=== PATIENT | female | born 1970 | race Caucasian/White ===

== ENCOUNTER 2020-07-30 11:45 | Emergency (ER) | payer OTHER, SELFPAY ==
[2020-07-30 11:54] VITALS: BP 152/91; PULSE 89; RESP 18; TEMP 36.2; O2SAT 92; BMI 35.4
--- NOTE | 2020-07-30 12:11 | XR_ITS ---
WS: [id number] Portable AP upright chest, 07/30/2020 Clinical Data: sob Comparison: None. Findings: No nodules, masses or effusions are seen. The heart is normal. The pulmonary vascularity is not increased. No pneumothorax is seen. The right cardiac border is obscured and there may be a patc hy opacity. This could represent atelectasis and/or pneumonia. There is slight obscuring of the left cardiac border and the lingula could be involved with pneumonia or atelectasis. XR/XR chest 1V portable [id number] Impression: 1. Patchy atelectasis and/or early pneumonia involving the right upper lobe and lingula of the left upper lobe. 2. Recommend repeat chest x-ray in one to 2 days.
--- NOTE | 2020-07-30 12:24 | ED_ITS ---
HPI - SOB/Dyspnea General: Chief Complaint: Shortness of Breath/Dyspnea Stated Complaint: SOB,ASTHMA Time Seen by Provider: 07/30/20 12:05 Source: patient Mode of arrival: ambulatory Limitations: no limitations History of Present Illness: HPI Narrative: 50-year-old female with a history of asthma is a longtime smoker. States she has had cough wheezing and shortness of breath over the last week. Patient has been on steroids and antibiotics for last 3 days. States she is continued to have some wheezing went back to work yesterday states her job is high intensity and has had more shortness of breath at work. She denies any chest pain. Denies any fevers. Associated symptoms: Deny abdominal pain, chest pain, fever(s), nausea or vomiting Review of Systems Const: Denies: fever(s), chills, body aches or change in appetite Eyes: Denies: blurry vision or eye discomfort ENMT: Denies: throat pain or dental pain Card: Denies: chest pain Resp: Reports: dyspnea and wheezing GI: Denies: abdominal pain, nausea, vomiting or diarrhea : Denies: dysuria Musc: Denies: neck pain or back pain Skin/Breast: Denies: rash Neuro: Denies: headache(s) Psych: Denies: depression Eulogio/Lymph: Denies: easy bruising All/Imm: Denies: urticaria Physical Exam Const: COMMON NORMALS: no acute distress, patient oriented x3 and healthy appearing HENMT: COMMON NORMALS: normocephalic and atraumatic HEAD & SCALP: normocephalic and atraumatic Eye: COMMON NORMALS: Equal, round and reactive pupils present and EOMs intact bilaterally PUPIL: Yes Equal, round and reactive pupils present Neck/C-Spine: COMMON NORMALS: full ROM and supple Chest: COMMONS NORMALS: normal inspection of the chest and normal palpation of entire chest wall Resp: COMMON NORMALS: normal respiratory effort, No retractions and No use of accessory muscles AUSCULTATION: wheezes Cardio: COMMON NORMALS: regular rate, regular rhythm and No murmurs present (Cardio) RATE: regular rate RHYTHM: regular rhythm GI: COMMON NORMALS: Normal to inspection, nondistended, normoactive bowel sounds present, Soft to palpation, non-tender and no masses PALPATION: Yes Soft to palpation Extremity: COMMON NORMALS: normal to inspection and full ROM Neuro: COMMON NORMALS: patient oriented x3, moves all extremities and no focal motor deficits Psych: COMMON NORMALS: mental status grossly normal, Normal thought process present and cooperative THOUGHT PROCESS: Normal thought process present Skin: COMMON NORMALS: no rashes or lesions noted and no wounds GENERAL SKIN EXAM: no rashes or lesions noted Course Vital Signs: Vital signs: Vital Signs Temperature 97.2 F L 07/30/20 11:54 Pulse Rate 86 07/30/20 13:35 Respiratory Rate 22 H 07/30/20 13:35 Blood Pressure 138/88 07/30/20 13:35 Pulse Oximetry 94 07/30/20 13:35 MDM - SOB/Dyspnea MDM Narrative: Medical decision making narrative: Patient presents for shortness of breath likely COPD exacerbation. X-ray shows a possible slight pneumonia. Will add 3 more days of doxycycline. She is to continue her steroids. Patient feels improved here and is requesting discharge. She has no distress and is stable for discharge. We will give her a work note and she is to return if worsening. She understands and agrees to plan. Lab Data: Labs: Lab Results 07/30/20 07/30/20 Range/Units 12:20 12:20 WBC 17.7 H (4.0-10.0) 10^3/ uL RBC 4.98 (4.1-5.3) 10^6/u L Hgb 15.4 H (11.5-15.3) g/dL Hct 46.2 (37.0-47.0) % MCV 92.8 (81-99) fL MCH 30.9 (28.0-34.0) pg MCHC 33.3 (30.0-36.0) g/dL RDW 13.7 (12.1-15.1) % Plt Count 364 (130-400) 10^3/c mm MPV 9.5 (7.4-10.4) fL Neut % (Auto) 83.0 % Lymph % (Auto) 13.7 % Whitman % (Auto) 2.1 % Eos % (Auto) 0.2 % Baso % (Auto) 0.4 % Neut # (Auto) 14.68 H (1.8-7.7) 10^3/u L Lymph # (Auto) 2.4 (0.8-4.8) 10^3/u L Whitman # (Auto) 0.4 (0.2-0.9) 10^3/u L Eos # (Auto) 0.0 (0.0-0.8) 10^3/u L Baso # (Auto) 0.1 (0.0-0.1) 10^3/u L Nucleated RBC % (a uto) 0 % Nucleated RBCs # 0.0 /100WBC Sodium 138 (136-145) mmol/L Potassium 4.0 (3.5-5.1) mmol/L Chloride 102 (98-107) mmol/L Carbon Dioxide 22 (22-29) mmol/L Anion Gap 18.0 (5-19) BUN 15 (6-20) mg/dL Creatinine 0.8 (0.5-0.9) mg/dL GFR Calculation 75.3 L (90-130) mL/min Glucose 163 H (65-115) mg/dL Calculated Osmolal ity 290 (285-295) mOsm/k g Calcium 10.0 (8.5-10.5) mg/dL Total Bilirubin 0.2 (0.15-1.2) mg/dL AST 18 (0-32) U/L ALT 23 (0-33) U/L Alkaline Phosphata se 75 (35-105) IU/L NT-Pro-B Natriuret Pep 69 (0-125) pg/mL Total Protein 7.8 (6.6-8.7) g/dL Albumin 4.3 (3.5-5.2) g/dL Globulin 3.5 (1.3-4.6) g/dL Imaging Data^: CXR: Radiologist's impression: Finalized Reason: sob [address] [address] XRay Report Signed Patient: Laya Hernandez Unit #: [id number] : 1970 Age/Sex: 50 / F ADM Date: 07/30/20 Loc: ER Room/Bed: Attending Dr: Ordering Provider/Ordering MD: Jana Shrestha MD Date of Service: 07/30/20 Procedure(s): XR chest 1V portable [id number] Accession Number(s): [id number] Report Number: [id number] WS: [id number] Portable AP upright chest, 07/30/2020 Clinical Data: sob Comparison: None. Findings: No nodules, masses or effusions are seen. The heart is normal. The pulmonary vascularity is not increased. No pneumothorax is seen. The right cardiac border is obscured and there may be a patchy opacity. This could represent atelectasis and/or pneumonia. There is slight obscuring of the left cardiac border and the lingula could be involved with pneumonia or atelectasis. XR/XR chest 1V portable [id number] Impression: 1. Patchy atelectasis and/or early pneumonia involving the right upper lobe and lingula of the left upper lobe. 2. Recommend repeat chest x-ray in one to 2 days. EKG Data^: EKG 1: Attestation: I personally reviewed and interpreted this EKG as follows: EKG Interpretation Date: 07/30/20 EKG interpretation time: 12:20 Interpretation: nsr hr [address] or t wave abnormalities qrs 82 qtc 428 Discharge Plan Discharge Patient Disposition: Home Clinical Impression: Asthma with exacerbation Qualifiers: Asthma severity: unspecified severity Asthma persistence: unspecified Qualified Code(s): J45.901 - Unspecified asthma with (acute) exacerbation Condition: Stable Prescriptions: New doxycycline hyclate 100 mg capsule 100 mg PO BID 3 Days Qty: 6 RF: 0 Discharge Orders: Discharge Order (Routine); Ordered 07/30/20 Ordered By: Jana Shrestha Referrals: Rossy Brower MD [Primary Care Provider] - 1-3 days Discharge Diet: Advance as tolerated Discharge Activity: Resume usual activity Patient Instructions: Asthma (ED) Stand Alone Forms: Work/School Release Discharge Date/Time: 07/30/20 13:36 Coding Level of Care Code ED Loom Changeover Operator for Chg Fwd Exam Comprehensive
[2020-07-30] MEDS: ipratropium-albuterol 3 mL Neb INHALATION (12:30)
[2020-07-30 12:35] VITALS: PULSE 83; RESP 20; O2SAT 93
[2020-07-30 12:37] VITALS: PULSE 83
[2020-07-30 12:39] LABS: Basophils # 0.1 10^3/uL (0.0-0.1); Basophils % 0.4 %; Eosinophils % 0.2 %; Hematocrit 46.2 % (37.0-47.0); Hemoglobin 15.4 g/dL (11.5-15.3); Lymphocytes # 2.4 10^3/uL (0.8-4.8); Lymphocytes % 13.7 %; Mean Corpuscular HGB Conc 33.3 g/dL (30.0-36.0); Mean Corpuscular Hemoglobin 30.9 pg (28.0-34.0); Mean Corpuscular Volume 92.8 fL (81-99); Mean Platelet Volume 9.5 fL (7.4-10.4); Monocytes # 0.4 10^3/uL (0.2-0.9); Monocytes % 2.1 %; Neutrophils # 14.68 10^3/uL (1.8-7.7); Nucleated Red Blood Cells % 0 %; Platelet Count 364 10^3/cmm (130-400); Red Blood Count 4.98 10^6/uL (4.1-5.3); Red Cell Distribution Width 13.7 % (12.1-15.1); White Blood Count 17.7 10^3/uL (4.0-10.0)
[2020-07-30 12:59] LABS: Alanine Aminotransferase 23 U/L (0-33); Albumin Level 4.3 g/dL (3.5-5.2); Alkaline Phosphatase 75 IU/L (35-105); Aspartate Amino Transferase 18 U/L (0-32); Blood Urea Nitrogen 15 mg/dL (6-20); Carbon Dioxide 22 mmol/L (22-29); Chloride 102 mmol/L (98-107); Globulin 3.5 g/dL (1.3-4.6); Glomerular Filtration Rate 75.3 mL/min (90-130); Glucose 163 mg/dL (65-115); NT Pro B Type Natriuretic Pept 69 pg/mL (0-125); Osmolality Calculated 290 mOsm/kg (285-295); Sodium 138 mmol/L (136-145); Total Bilirubin 0.2 mg/dL (0.15-1.2); Total Protein 7.8 g/dL (6.6-8.7)
[2020-07-30 13:01] VITALS: BP 138/88; PULSE 86; RESP 22; O2SAT 94
[2020-07-30 13:35] VITALS: BP 138/88; PULSE 86; RESP 22; O2SAT 94
== END 2020-07-30 13:36 | disposition home or self-care (01) ==
PROVIDERS: Emergency Provider Emergency Medicine; PCP Family Medicine
DX: J45.901 Unspecified asthma with (acute) exacerbation (principal)
CPT/HCPCS: 12345; 71045; 80053; 83880; 85025; 94640; 96374; 99283; J2930; J7611

== ENCOUNTER → 2021-08-26 11:14 | Outpatient (BNVA) | payer OTHER, SELFPAY | PROVIDERS: PCP Family Medicine; Visit Provider Surgery | DX: Z11.52 Encounter for screening for COVID-19 (principal); Z20.822 Contact with and (suspected) exposure to COVID-19 | CPT/HCPCS: 87635 ==

== ENCOUNTER 2021-09-01 10:40 | Day surgery (SDC) | payer OTHER, SELFPAY ==
[2021-08-31 16:57] VITALS: BMI 37.2
--- NOTE | 2021-09-01 10:46 | W.PM.OPSFHP ---
Same Day Surgery H&P Indication for Procedure/HPI DATE OF PROCEDURE: September 01, 2021 CHIEF COMPLAINT/INDICATIONFOR SURGICAL PROCEDURE: left arm mass excision PREOP DIAGNOSIS: left arm mass PLANNED PROCEDRUE: Operation Date: 09/01/21 12:05 Proposed Procedures p Excision of mass left arm under mac 25472 R22.32(Left) - Andrea Carlson MD Medications/Allergies* Home Medications Medication Instructions Recorded Confirmed Type albuterol sulfate 90 mcg/actuation 2 puff INHALATION Q6H PRN 08/03/21 08/31/21 History aerosol inhaler budesonide-formoterol HFA 160 2 puff INHALATION BID 08/03/21 08/31/21 History mcg-4.5 mcg/actuation aerosol inhaler diphenhydramine HCl 25 mg tablet 25 mg PO TID PRN 08/03/21 08/31/21 History escitalopram oxalate 20 mg tablet 20 mg PO DAILY 08/03/21 08/31/21 History gabapentin 300 mg capsule 300 mg PO DAILY 08/03/21 08/31/21 History montelukast 10 mg tablet 10 mg PO DAILY 08/03/21 08/31/21 History norethindrone acetate 1 mg-ethinyl 1 tab PO DAILY 08/03/21 08/31/21 History estradiol 5 mcg tablet Allergies/Adverse Reactions Allergy/AdvReac Type Severity Reaction Status Date / Time No Known Allergies Allergy Verified 08/31/21 16:54 Pertinent History/Comorbid Conditions* Medical History (Updated 08/03/21 @ 13:54 by Andrea Carlson MD) Asthma Surgical History (Updated 08/03/21 @ 13:54 by Andrea Carlson MD) History of oophorectomy 2010 Family History (Updated 08/03/21 @ 13:35 by Joaquina Hussein) Cancer Denies family history of Diabetes CAD (coronary artery disease) Dementia Chronic kidney disease (CKD) Lung disease Stroke Social History Smoking and tobacco status: current every day smoker Alcohol intake: never Lives independently: Yes Household members: spouse Marital status: Pertinent Exam Findings alert, oriented x 3 and regular rate & rhythm Recommendations Surgery/Procedure today Coding Level of Care Code Acute Communicable Disease Specialist for Jesse Varner
[2021-09-01 11:18] VITALS: BP 138/87; PULSE 72; RESP 18; TEMP 37.6; O2SAT 95
[2021-09-01] MEDS: sodium chloride 0.9% 1,000 ML 30 ML IV (11:30)
--- NOTE | 2021-09-01 11:56 | ANES.PREANE2 ---
Pre-Anesthetic Assessment Pre-Anesthetic Assessment: Height/Weight: Height 1.6 m Weight 95.254 kg Temp Pulse Resp BP Pulse Ox 99.6 F 72 18 138/87 95 09/01/21 11:18 09/01/21 11:18 09/01/21 11:18 09/01/21 11:18 09/01/21 11:18 Preop Diagnosis: Left arm mass Proposed Procedure: Operation Date: 09/01/21 12:05 Proposed Procedures p Excision of [place] mac 36712 R22.32(Left) - Andrea Carlson MD Was Beta Roman taken within 24 hours: N/A Was Clonidine taken within 24 hours: N/A Last intake: Intake Last Liquid Date 09/01/21 Last Liquid Time 01:00 Last Solid Date 09/01/21 Last Solid Time 03:00 Social: Social History: Tobacco Packs per day: 2 Exam: Pre-Anes Outpt Exam: alert, oriented x 3, clear to auscultation bilaterally and regular rate & rhythm Airway: Submandibular: WNL Cervical ROM: WNL MP: 2 Dentition: Chipped Additional comments: Full denture on top. few teeth on bottom History/ROS: No significant history except as noted and No significant complaints Pulmonary: Pulmonary: Asthma CV/HEM: CV/HEM: None reported : : None reported Hepatic: Hepatic: None reported GI: GI: None reported Metabolic: Metabolic: None reported Musc/skel: Musc/skel: None reported Neuropsych: Neuropsych: None reported Anesthetic Plan: ASA status: 2 Anesthesia: MAC Risk of > 500 ml blood loss (7ml/kg in children): No Meds/Allergies Current Medications: Current Medications Generic Name Dose Route Start Last Admin Trade Name Freq PRN Reason Stop Dose Admin Sodium Chloride 1,000 mls @ 30 ml s/hr 09/01/21 11:00 09/01/21 11:30 Sodium Chloride 0.9% IV 09/02/21 10:59 30 mls/hr .Q24H DEVIN Administration PFSH Anesthesia PFSH: Medical History (Updated 08/03/21 @ 13:54 by Andrea Carlson MD) Asthma Surgical History (Updated 09/01/21 @ 11:03 by Andrea Carlson MD) H/O excision of mass (09/01/21) left arm History of oophorectomy 2009 Family History (Updated 08/03/21 @ 13:35 by Joaquina Hussein) Other Cancer Denies family history of Diabetes CAD (coronary artery disease) Dementia Chronic kidney disease (CKD) Lung disease Stroke Social History (Updated 08/03/21 @ 13:36 by Joaquina Hussein) Smoking and tobacco status: current every day smoker Alcohol intake: never Lives independently: Yes Household members: spouse Marital status: Data Anesthesia Cardiac Studies: No Data to Display
[2021-09-01] MEDS: lidocaine 1% INJ 20 mL INJECTION (12:13)
[2021-09-01 13:02] VITALS: BP 148/88; PULSE 92; RESP 16; TEMP 36.3; O2SAT 96
[2021-09-01 13:05] VITALS: BP 144/94; PULSE 87; RESP 16; O2SAT 95
[2021-09-01 13:10] VITALS: BP 136/89; PULSE 85; RESP 16; TEMP 37; O2SAT 92
[2021-09-01 13:14] VITALS: BP 127/81; PULSE 94; RESP 15; O2SAT 94
[2021-09-01 13:37] VITALS: BP 135/83; PULSE 91; RESP 16; TEMP 37; O2SAT 95
--- NOTE | 2021-09-01 15:44 | ANE.PACU2 ---
Inpatient post-anesthesia follow up: Airway intact: Yes Vital signs: Temperature 98.6 F Pulse Rate 91 Respiratory Rate 16 Blood Pressure 135/83 Pulse Oximetry 95 Oxygen Delivery Me thod Room Air Oxygen Flow Rate Fraction of Inspir ed Oxygen Hydration adequate: Yes Nausea and vomiting: No Pain level: 2 Mental status: Baseline
--- NOTE | 2021-09-02 13:32 | P.OP_ITS ---
Operative Report Date of procedure: September 02, 2021 Pre-op Diagnosis: Left arm mass Post-op Diagnosis: 3 x 3 cm mass on the medial aspect of the left arm, purulent fluid noted at the core Procedure Done: Excision of subcutaneous mass left arm Specimens removed/disposition: Wound cultures Specimen sent to pathology Surgeon: Andrea Carlson Anesthesia: MAC Condition: stable Disposition: PACU Procedure: The patient is in the operating room and placed under MAC after IV antibiotic had been administered. The left arm was prepped and draped in a sterile manner. 1% lidocaine with 0.5% Marcaine was infiltrated around the p alpable mass. Using 15 blade a 4 cm incision was made, subcutaneous tissue was divided using electrocautery and the palpable mass was dissected free from the surrounding subcutaneous tissue and underlying muscular fascia and sent to pathology. There was an opening in the mass during dissection resulting in drainage of greenish purulent fluid from which aerobic and anaerobic cultures were obtained. The wound was irrigated with saline, hemostasis ensured and subcutaneous tissue was approximated using interrupted 3-0 Vicryl suture and skin was closed using running subcuticular 4-0 Monocryl suture and Dermabond. Pressure dressings were applied. The patient was transferred to recovery room in stable condition.
== END 2021-09-01 13:44 | disposition home or self-care (01) ==
PROVIDERS: PCP Family Medicine; Visit Provider Surgery
PROC: (CPT 11403; principal; 2021-09-01 12:05)
DX: R22.32 Localized swelling, mass and lump, left upper limb (principal); J45.909 Unspecified asthma, uncomplicated; F17.210 Nicotine dependence, cigarettes, uncomplicated
CPT/HCPCS: 11403; 12032; 87070; 87075; 87205; 88307; 96365; J0690; J2250; J2704; J3490; J7030

== ENCOUNTER 2023-09-13 15:19 | Outpatient (CLI) | payer OTHER, SELFPAY ==
--- NOTE | 2023-09-13 15:28 | MM_ITS ---
WS: [id number] BILATERAL 3D TOMOSYNTHESIS DIGITAL SCREENING MAMMOGRAPHY WITH CAD CLINICAL INFORMATION: SCREENING HISTORY: Screening mammogram. No current complaints. COMPARISON: 2018 TECHNIQUE: Bilateral CC and MLO views. FINDINGS: The breasts are composed of heterogeneous fibroglandular density tissue, which can limit the detectio n of small underlying mass lesions. No suspicious mass, asymmetry, calcifications, or architectural d istortion. No evidence of malignancy. Incidental intramammary lymph node in her LEFT breast IMPRESSION: MM/[place] [id number] BI-RADS: 2-Benign FOLLOW UP: 1 Year Follow-up Recommend return to annual screening mammography.
== END 2023-09-13 15:20 | disposition home or self-care (01) ==
LOC: RAD 15:19
PROVIDERS: PCP Family Medicine; Visit Provider Family Medicine
DX: Z12.31 Encounter for screening mammogram for malignant neoplasm of breast (principal)
CPT/HCPCS: 77063; 77067

== ENCOUNTER 2025-02-21 07:53 | Outpatient (CLI) | payer OTHER, SELFPAY ==
--- NOTE | 2025-02-21 07:59 | MM_ITS ---
WS: [id number] BILATERAL SCREENING DIGITAL TOMOSYNTHESIS MAMMOGRAM WITH CAD HISTORY: SCREENING COMPARISON: 11/02/2015, 09/13/2023, 01/10/2018 Bilateral CC and MLO views with tomosynthesis and synthetic mammography submitted. Computer aided detection analyzed. Breast composition: The breasts are heterogeneously dense, which may obscure small masses. No suspicious masses, microcalcifications or architectural distortion. Well-circumscribed 6 mm mass in the medial LEFT breast was present on the prior exam of 09/13/2023 without increase in size. MM/MM scr tomosynthesis [id number] IMPRESSION: BI-RADS: 2 - Benign FOLLOW UP: 1 Year Follow-up
== END 2025-02-21 07:54 | disposition home or self-care (01) ==
PROVIDERS: PCP Family Medicine; Visit Provider Family Medicine
DX: Z12.31 Encounter for screening mammogram for malignant neoplasm of breast (principal); R92.333 Mammographic heterogeneous density, bilateral breasts; N63.20 Unspecified lump in the left breast, unspecified quadrant
CPT/HCPCS: 77063; 77067

== ENCOUNTER → 2025-08-21 15:57 | Outpatient (BNVA) | payer OTHER, SELFPAY | PROVIDERS: PCP Family Medicine; Visit Provider Nurse Practitioner Women's Health | DX: Z01.419 Encounter for gynecological examination (general) (routine) without abnormal findings (principal) | CPT/HCPCS: 80053; 83036; 85025 ==

== ENCOUNTER → 2025-10-27 14:34 | Outpatient (BNVA) | payer OTHER, SELFPAY | PROVIDERS: PCP Family Medicine; Visit Provider Family Medicine | DX: R50.9 Fever, unspecified (principal) | CPT/HCPCS: 87400; 87426 ==